=== PATIENT | female | born 1955 | race Caucasian/White ===

== ENCOUNTER 2020-10-27 10:05 | Day surgery (SDC) | payer OTHER ==
[~2020-10-27] VITALS: Ht 30.5 cm; Wt 0.5 kg
[~2020-10-27 10:05] MED LIST: AMLO-489 PO; DOCU100T15 PO; GABA300C10 PO; GLIP5TAB12 PO; HYDR-4072 PO; HYDR25TA5 PO; LEVO750T64 PO; LOSA-39 PO; METF-372 PO; ROSU10TA16 PO; SERT-160 PO
[2020-10-27] MEDS ORDERED: ceFAZolin 1GM/50ML 0 ML IV ONE (10:27)
[2020-10-27] MEDS ORDERED: GENTAMICIN SULF 80 MG/2 ML VIAL ONE (10:40)
[2020-10-27] MEDS ORDERED: IOHEXOL 300 MG/ML 100ML BOTTLE IJ ONE (12:54)
[2020-10-27] MEDS ORDERED: MEPERIDINE HCL (25 MG/ML) 1ML VIAL ONE (13:04)
[2020-10-27] MEDS ORDERED: fentaNYL CITRATE 100 MCG/2 ML VL ONE (13:04)
[2020-10-27] MEDS ORDERED: MIDAZOLAM HCL 1MG/1ML-2 ML VIAL ONE (13:05)
[2020-10-27] MEDS ORDERED: DexAMETHasone SOD PHOS 10MG/1ML VIAL INJ ONE (13:05)
[2020-10-27] MEDS ORDERED: PROPOFOL 10 MG/ML 20 ML IV ONE (13:05)
[2020-10-27] MEDS ORDERED: ONDANSETRON HCL 4 MG/2 ML VIAL IV PRN (14:30)
[2020-10-27] MEDS ORDERED: HYDROmorphone HCL 2 MG/ML VL IV PRN (14:30)
[2020-10-27] MEDS ORDERED: MIDAZOLAM HCL 1MG/1ML-2 ML VIAL IV PRN (14:30)
[2020-10-27] MEDS ORDERED: LABETALOL HCL 5 MG/ML 4ML SYRINGE IV PRN (14:30)
[2020-10-27] MEDS ORDERED: ePHEDrine SULFATE 50 MG/ML AMP IV PRN (14:30)
[2020-10-27] MEDS ORDERED: MORPHINE SULFATE 4 MG/ML SYR/VIAL IV PRN (14:30)
[2020-10-27 14:45] VITALS: BP 130/53
== END 2020-10-27 15:10 | disposition home or self-care (01) ==
LOC: SUR 10:05
PROVIDERS: ATTEND Urology
DX: N20.0 Calculus of kidney (principal); T83.192A Other mechanical complication of indwelling ureteral stent, initial encounter; I12.9 Hypertensive chronic kidney disease with stage 1 through stage 4 chronic kidney disease, or unspecified chronic kidney disease; E11.22 Type 2 diabetes mellitus with diabetic chronic kidney disease; N18.2 Chronic kidney disease, stage 2 (mild); E11.42 Type 2 diabetes mellitus with diabetic polyneuropathy; G89.29 Other chronic pain; M19.90 Unspecified osteoarthritis, unspecified site; F17.210 Nicotine dependence, cigarettes, uncomplicated; Z82.49 Family history of ischemic heart disease and other diseases of the circulatory system; Z96.0 Presence of urogenital implants; Z79.899 Other long term (current) drug therapy; Z98.890 Other specified postprocedural states; Z86.79 Personal history of other diseases of the circulatory system; Z88.8 Allergy status to other drugs, medicaments and biological substances; Z80.3 Family history of malignant neoplasm of breast; Z83.3 Family history of diabetes mellitus; Z82.61 Family history of arthritis; Z79.84 Long term (current) use of oral hypoglycemic drugs; Z90.49 Acquired absence of other specified parts of digestive tract; Z90.89 Acquired absence of other organs; Z90.711 Acquired absence of uterus with remaining cervical stump; Z20.822 Contact with and (suspected) exposure to COVID-19; Y83.8 Other surgical procedures as the cause of abnormal reaction of the patient, or of later complication, without mention of misadventure at the time of the procedure; Y92.89 Other specified places as the place of occurrence of the external cause; Z88.0 Allergy status to penicillin
CPT/HCPCS: 50590; 52310; 82962; 88300; J1100; J1580; J2175; J2250; J2704; J3010; J7030; U0003; J0690

== ENCOUNTER → 2021-10-22 | Day surgery (SDC) | payer OTHER ==
[~2021-10-22] VITALS: Ht 157.5 cm; Wt 77.1 kg
[~2021-10-22] MED LIST changes: +ACCU-CHEK COMFORT CURVE STRIP VI ONE; +DexAMETHasone SOD PHOS 10MG/1ML VIAL INJ ONE; +GENTAMICIN SULF 80 MG/2 ML VIAL ONE; +HYDROCORTISONE SOD SUCC 100 MG/2ML INJ VIAL ONE; +HYDROmorphone HCL 2 MG/ML VL/or syr IV PRN; +HYDROmorphone HCL 2 MG/ML VL/or syr ONE; +KETAMINE 50mg/ML 10ml Vial (500mg/10ml) IV ONE; +KETOROLAC TROMETH 30 MG/ML 1ML VIAL ONE; -LEVO750T64 PO; +LIDOCAINE 2% (LOCAL ANESTH.) PF 5ml SDV ONE; +MIDAZOLAM HCL 2MG/2ML 2ml VIAL (1mg/ml) ONE; +MULT-733 OR; +ONDANSETRON HCL 4 MG/2 ML VIAL IV PRN; +ONDANSETRON HCL 4 MG/2 ML VIAL ONE; +ROCURONIUM 10MG/ML 10ML VIAL IV ONE; +TIZA4TAB9 PO; +[UNRECOGNIZED DRUG - CODE] EX; +fentaNYL CITRATE 100 MCG/2 ML VL ONE
[2021-10-22 12:40] VITALS: BP 132/51
== END | disposition home or self-care (01) ==
LOC: SUR 08:23
PROVIDERS: ATTEND Urology
DX: N20.0 Calculus of kidney (principal); I12.9 Hypertensive chronic kidney disease with stage 1 through stage 4 chronic kidney disease, or unspecified chronic kidney disease; E11.22 Type 2 diabetes mellitus with diabetic chronic kidney disease; N18.2 Chronic kidney disease, stage 2 (mild); F41.9 Anxiety disorder, unspecified; E78.5 Hyperlipidemia, unspecified; E11.42 Type 2 diabetes mellitus with diabetic polyneuropathy; G89.29 Other chronic pain; F17.200 Nicotine dependence, unspecified, uncomplicated; Z88.0 Allergy status to penicillin; Z88.1 Allergy status to other antibiotic agents; Z88.8 Allergy status to other drugs, medicaments and biological substances; Z20.822 Contact with and (suspected) exposure to COVID-19
CPT/HCPCS: 52353; 74018; 82962; J1100; J1170; J1580; J1720; J1885; J2001; J2250; J2405; J3010; U0003; 76000

== ENCOUNTER 2022-03-01 06:12 | Day surgery (SDC) | payer OTHER ==
[~2022-03-01] VITALS: Ht 157.5 cm; Wt 77.1 kg
[~2022-03-01 06:12] MED LIST changes: -ACCU-CHEK COMFORT CURVE STRIP VI ONE; -DexAMETHasone SOD PHOS 10MG/1ML VIAL INJ ONE; -GENTAMICIN SULF 80 MG/2 ML VIAL ONE; -HYDR-4072 PO; -HYDROCORTISONE SOD SUCC 100 MG/2ML INJ VIAL ONE; -HYDROmorphone HCL 2 MG/ML VL/or syr IV PRN; -HYDROmorphone HCL 2 MG/ML VL/or syr ONE; -KETAMINE 50mg/ML 10ml Vial (500mg/10ml) IV ONE; -KETOROLAC TROMETH 30 MG/ML 1ML VIAL ONE; -LIDOCAINE 2% (LOCAL ANESTH.) PF 5ml SDV ONE; -MIDAZOLAM HCL 2MG/2ML 2ml VIAL (1mg/ml) ONE; +MULT-733 PO; -ONDANSETRON HCL 4 MG/2 ML VIAL IV PRN; -ONDANSETRON HCL 4 MG/2 ML VIAL ONE; +PERCOT PO; -ROCURONIUM 10MG/ML 10ML VIAL IV ONE; -[UNRECOGNIZED DRUG - CODE] EX; +[UNRECOGNIZED DRUG - CODE] PO; -fentaNYL CITRATE 100 MCG/2 ML VL ONE
[2022-03-01] MEDS ORDERED: ceFAZolin 1GM/50ML 100 ML IV ONE (07:18)
[2022-03-01] MEDS ORDERED: ONDANSETRON HCL 4 MG/2 ML VIAL IV PRN (09:00)
[2022-03-01] MEDS ORDERED: MIDAZOLAM HCL 2MG/2ML 2ml VIAL (1mg/ml) IV PRN (09:00)
[2022-03-01] MEDS ORDERED: HYDROmorphone HCL 2 MG/ML VL/or syr IV PRN (09:00)
[2022-03-01] MEDS ORDERED: ePHEDrine SULFATE 50 MG/ML AMP IV PRN (09:00)
[2022-03-01] MEDS ORDERED: ACCU-CHEK COMFORT CURVE STRIP VI ONE (09:00)
[2022-03-01] MEDS ORDERED: LABETALOL HCL 5 MG/ML 4ML SYRINGE IV PRN (09:00)
[2022-03-01] MEDS ORDERED: MORPHINE SULFATE 4 MG/ML SYR/VIAL IV PRN (09:00)
[2022-03-01 09:06] VITALS: BP 125/63
== END 2022-03-01 09:27 | disposition home or self-care (01) ==
LOC: SUR 06:12
PROVIDERS: ATTEND Urology
DX: N20.0 Calculus of kidney (principal); I10 Essential (primary) hypertension; F32.A Depression, unspecified; E11.42 Type 2 diabetes mellitus with diabetic polyneuropathy; Z88.0 Allergy status to penicillin; Z87.891 Personal history of nicotine dependence; Z20.822 Contact with and (suspected) exposure to COVID-19
CPT/HCPCS: 50590; 82962; C1769; J0690; J1100; J2175; J2250; J2704; J3010; J7030; U0003

== ENCOUNTER 2023-10-09 16:06 | Inpatient (IN) | payer OTHER, MEDICARE ==
[~2023-10-09] VITALS: Ht 167.6 cm; Wt 57.7 kg
[~2023-10-09 16:06] MED LIST changes: -AMLO-489 PO; +AMLO1TAB22 PO; +GABA-1250 PO; -GABA300C10 PO; -GLIP5TAB12 PO; +GLIP5TAB21 PO; -LOSA-39 PO; +LOSA-535 PO
[2023-10-09] MEDS: LORazepam 2MG/ML-1ML VIAL IV ONE ×2 (16:30→19:30)
[2023-10-09] MEDS: HALOPERIDOL LACTATE 5 MG/ML INJ VIAL IV ONE ×2 (19:30→20:29)
[2023-10-09] MEDS: diphenhdrAMINE HCL 50 MG/1 ML VL IV ONE (20:28)
[2023-10-09 20:55] VITALS: PULSE 76; RESP 18; O2SAT 97
[2023-10-10] MEDS: HYDROcodone-ACET 5/325MG TAB PO ONE ×2 (03:35→09:17)
[2023-10-10 04:14] LABS: Basophils # (auto) 0.1 10 ^3/uL (0-0.2); Basophils % (auto) 0.8 % (0.0-2.0); Eosinophils # (auto) 0.1 10 ^3/uL (0-0.8); Eosinophils % (auto) 1.4 % (0.0-7.0); Hematocrit 36.1 % (36.0-46.0); Hemoglobin 12.7 g/dL (12.2-16.2); Lymphocytes # (auto) 1.6 10 ^3/uL (0.4-5.4); Lymphocytes % (auto) 19.5 % (10.0-50.0); Mean Corpuscular Hemoglobin 30.1 pg (28.0-32.0); Mean Corpuscular Hgb Conc. 35.3 g/dL (32.0-36.0); Mean Corpuscular Volume 85.2 fL (80.0-100.0); Monocytes # (auto) 0.6 10 ^3/uL (0-1.3); Monocytes % (auto) 7.1 % (0.0-12.0); Neutrophils # (auto) 5.8 10 ^3/uL (1.6-8.6); Neutrophils % (auto) 71.2 % (37.0-80.0); Nucleated Red Blood Cells % 0.1 %; Red Blood Cells 4.24 10^6/uL (4.0-5.20); Red Cell Distribution Width 15.4 % (11.8-14.3); White Blood Cell 8.2 10^3/uL (4.4-10.8)
[2023-10-10 04:32] LABS: Chloride 102 mmol/L (98-107); Potassium 3.2 mmol/L (3.5-5.1); Sodium 134 mmol/L (136-145)
[2023-10-10 04:33] LABS: Anion Gap 10 (5-15); Calcium 9.7 mg/dL (8.7-10.4); Carbon Dioxide 22 mmol/L (20-30)
[2023-10-10 04:38] LABS: BUN/Creatinine Ratio 18.1 (10.0-20.0); Blood Urea Nitrogen 15 mg/dL (9-23); Glucose 114 mg/dL (74-106)
[2023-10-10 04:42] LABS: Salicylate < 3.0 mg/dL (2.8-20.0)
[2023-10-10 04:44] LABS: Urine Bacteria None Seen /hpf (None Seen)
[2023-10-10 05:03] LABS: Amphetamine Screen, Urine Neg (NEGATIVE); Barbiturate Scree,Urine Neg (NEGATIVE); Benzodiazephine Screen, Urine Neg (NEGATIVE); Cannabinoid Screen, Urine Neg (NEGATIVE); Cocaine Screen, Urine Neg (NEGATIVE); Opiate Scree,Urine Pos (NEGATIVE); Phencyclidine Screen, Urine Neg (NEGATIVE)
[2023-10-10 05:09] LABS: Urine Blood 3+ /uL (Negative); Urine Budding Yeast FEW /hpf (None Seen); Urine Clarity Turbid (Clear); Urine Color Brown (Yellow); Urine Protein, UAD 2+ (Negative); Urine Specific Gravity 1.014 (1.001-1.035); Urine Urobilinogen Normal (Negative); Urine WBC 250 /hpf (0 - 5); Urine WBC Clumps PRESENT /hpf (None Seen); Urine pH 7.5 (5.0-9.0)
[2023-10-10 06:08] LABS: Blood Alcohol < 3.0 mg/dL (<10)
[2023-10-10] MEDS: cefTRIAXone 1GM/50ML D5W 50 ML IV ONE (06:56)
[2023-10-10] MEDS: POTASSIUM EFFERVESENT TAB 25 MEQ PO ONE (08:22)
[2023-10-10] MEDS ORDERED: BACDST PO (08:29)
[2023-10-10] MEDS ORDERED: HYDR-4902 PO (08:29)
[2023-10-10] MEDS: DULoxetine HCL 30 MG CAP PO SCH (11:02)
[2023-10-10] MEDS ORDERED: NITROGLYCERIN 0.4 MG SL TAB SL PRN ×2 (17:45)
[2023-10-10] MEDS ORDERED: MORPHINE SULFATE INJ 2 MG/ml SYRG IV PRN ×2 (17:45)
[2023-10-10] MEDS ORDERED: DOCUSATE SOD 100 MG CAP PO PRN (17:45)
[2023-10-10] MEDS ORDERED: ONDANSETRON HCL 4 MG/2 ML VIAL IV PRN (17:45)
[2023-10-10] MEDS ORDERED: MAALOX PLUS or MAALOX 30 ML PO PRN (17:45)
[2023-10-10] MEDS ORDERED: ACETAMINOPHEN 325 MG TAB PO PRN (17:45)
[2023-10-10] MEDS: HYDROcodone-ACET 5/325MG TAB PO PRN (18:52)
[2023-10-10 21:30] VITALS: PULSE 71; RESP 17; O2SAT 98
[2023-10-10] MEDS: CEPHALEXIN 250 MG CAP PO SCH (22:00)
[2023-10-10] MEDS: SODIUM CHLOR 0.9% PF (SALINE LOCK) 10ML VIAL/SYR IV SCH (22:00)
[2023-10-11 03:51] VITALS: PULSE 70; RESP 17; O2SAT 99
[2023-10-11 05:00] VITALS: BP 119/70; PULSE 70; RESP 19; TEMP 97.8; O2SAT 99
[2023-10-11 06:10] LABS: Basophils # (auto) 0.1 10 ^3/uL (0-0.2); Basophils % (auto) 0.8 % (0.0-2.0); Eosinophils # (auto) 0.1 10 ^3/uL (0-0.8); Eosinophils % (auto) 1.9 % (0.0-7.0); Hematocrit 36.3 % (36.0-46.0); Hemoglobin 12.7 g/dL (12.2-16.2); Lymphocytes # (auto) 1.7 10 ^3/uL (0.4-5.4); Mean Corpuscular Hemoglobin 30.7 pg (28.0-32.0); Mean Corpuscular Volume 87.8 fL (80.0-100.0); Monocytes # (auto) 0.6 10 ^3/uL (0-1.3); Monocytes % (auto) 8.2 % (0.0-12.0); Neutrophils # (auto) 4.3 10 ^3/uL (1.6-8.6); Neutrophils % (auto) 64.1 % (37.0-80.0); Nucleated Red Blood Cells % 0.1 %; Red Blood Cells 4.14 10^6/uL (4.0-5.20); Red Cell Distribution Width 15.3 % (11.8-14.3); White Blood Cell 6.8 10^3/uL (4.4-10.8)
[2023-10-11 06:14] LABS: Anion Gap 8 (5-15); Carbon Dioxide 23 mmol/L (20-30); Chloride 106 mmol/L (98-107); Potassium 3.7 mmol/L (3.5-5.1); Sodium 137 mmol/L (136-145)
[2023-10-11 06:15] LABS: Calcium 9.5 mg/dL (8.5-10.1)
[2023-10-11 06:20] LABS: BUN/Creatinine Ratio 15.5 (10.0-20.0); Blood Urea Nitrogen 11 mg/dL (9-23); Glucose 111 mg/dL (74-106)
[2023-10-11 08:00] VITALS: BP 100/54; PULSE 71; RESP 18; TEMP 98; O2SAT 99
[2023-10-11 09:00] VITALS: BP 100/54; PULSE 71; RESP 18; TEMP 98; O2SAT 99
[2023-10-11] MEDS: POTASSIUM CHL 20 Meq TABLET PO SCH (09:45)
[2023-10-11] MEDS: ENOXAPARIN SOD 30 MG/0.3 ML SYRINGE SC SCH (09:46)
[2023-10-11] MEDS ORDERED: HYDROcodone-ACET 10/325MG TAB PO PRN (14:45)
[2023-10-11] MEDS ORDERED: DEXTROSE (50%) 50ML SYRG IV PRN (15:15)
[2023-10-11] MEDS: HYDROcodone-ACET 10/325MG TAB PO PRN (15:30)
[2023-10-11] MEDS: InsuLIN REG 1unit/0.01ml Soln (100units/ml) SC SCH (17:00)
[2023-10-11] MEDS: ACCU-CHEK COMFORT CURVE STRIP VI SCH (17:26)
[2023-10-11 20:00] VITALS: PULSE 64; RESP 15; O2SAT 100
[2023-10-11 21:00] VITALS: BP 133/67; PULSE 64; RESP 15; TEMP 98.6; O2SAT 100
[2023-10-11] MEDS: GABAPENTIN 300 MG CAP PO SCH (22:43)
[2023-10-11] MEDS: QUEtiapine FUMARATE 25 MG TAB PO SCH (22:44)
[2023-10-11] MEDS: MIRTAZAPINE 30 MG TAB PO SCH (22:44)
[2023-10-12] MEDS: glipiZIDE 5 MG TAB PO SCH (06:18)
[2023-10-12 08:30] VITALS: BP 155/79; PULSE 66; RESP 15; TEMP 98; O2SAT 98
[2023-10-12 08:34] LABS: Basophils # (auto) 0.1 10 ^3/uL (0-0.2); Basophils % (auto) 1.1 % (0.0-2.0); Eosinophils # (auto) 0.2 10 ^3/uL (0-0.8); Hematocrit 41.4 % (36.0-46.0); Lymphocytes # (auto) 2.2 10 ^3/uL (0.4-5.4); Lymphocytes % (auto) 31.6 % (10.0-50.0); Mean Corpuscular Hemoglobin 30.1 pg (28.0-32.0); Mean Corpuscular Hgb Conc. 33.9 g/dL (32.0-36.0); Mean Corpuscular Volume 88.9 fL (80.0-100.0); Monocytes # (auto) 0.5 10 ^3/uL (0-1.3); Neutrophils % (auto) 57.3 % (37.0-80.0); Nucleated Red Blood Cells % 0.4 %; Red Blood Cells 4.66 10^6/uL (4.0-5.20); Red Cell Distribution Width 15.7 % (11.8-14.3)
[2023-10-12 08:45] LABS: Alanine Aminotransferase 21 U/L (7-40); Albumin 4.3 g/dL (3.2-4.8); Alkaline Phosphatase 210 U/L (46-116); Anion Gap 7 (5-15); Aspartate Aminotransferase 28 U/L (13-40); BUN/Creatinine Ratio 12.5 (10.0-20.0); Blood Urea Nitrogen 11 mg/dL (9-23); Carbon Dioxide 25 mmol/L (20-30); Chloride 107 mmol/L (98-107); Glucose 96 mg/dL (74-106); Potassium 3.8 mmol/L (3.5-5.1); Sodium 139 mmol/L (136-145)
[2023-10-12 08:46] LABS: Bilirubin, Total 0.6 mg/dL (0.2-1.0)
[2023-10-12] MEDS: LOSARTAN POTASSIUM 50 MG TAB PO SCH (10:03)
[2023-10-12 12:30] VITALS: BP 115/69; PULSE 68; RESP 16; TEMP 98.1; O2SAT 98
[2023-10-12] MEDS: CARBIDOPA W LEVODOPA 25/100mg TABLET PO ONE (13:02)
[2023-10-12] MEDS: HYDROcodone-ACET 10/325MG TAB PO SCH (13:03)
[2023-10-12 16:35] VITALS: BP 134/71; PULSE 69; RESP 16; TEMP 98.4; O2SAT 98
[2023-10-12 20:00] VITALS: PULSE 59; RESP 17; O2SAT 93
[2023-10-12 21:00] VITALS: BP 133/69; PULSE 59; RESP 17; TEMP 98; O2SAT 93
[2023-10-13 01:00] VITALS: BP 128/62; PULSE 54; RESP 18; TEMP 97.8; O2SAT 95
[2023-10-13 05:00] VITALS: BP 91/54; PULSE 56; RESP 18; TEMP 97.9; O2SAT 92
[2023-10-13 06:17] LABS: Chloride 109 mmol/L (98-107); Sodium 138 mmol/L (136-145)
[2023-10-13 06:18] LABS: Anion Gap 5 (5-15); Calcium 9.4 mg/dL (8.5-10.1); Carbon Dioxide 24 mmol/L (20-30)
[2023-10-13 06:23] LABS: BUN/Creatinine Ratio 16.7 (10.0-20.0); Blood Urea Nitrogen 12 mg/dL (9-23); Glucose 81 mg/dL (74-106)
[2023-10-13] MEDS: CARBIDOPA W LEVODOPA 25/100mg TABLET PO SCH (10:31)
[2023-10-13] MEDS: FLUCONAZOLE 100 MG TAB PO SCH (14:42)
[2023-10-13] MEDS: GABAPENTIN 300 MG CAP PO SCH (14:42)
[2023-10-13 20:00] VITALS: PULSE 71; RESP 16; O2SAT 99
[2023-10-13 21:00] VITALS: BP 115/67; PULSE 71; RESP 16; TEMP 98.1; O2SAT 99
[2023-10-13] MEDS: diphenhdrAMINE HCL 50 MG/1 ML VL IV ONE (22:54)
[2023-10-14] VITALS (9 sets, daily range): BP systolic 102–155; BP diastolic 51–85; PULSE 59–74; RESP 16–94; TEMP 36.7; O2SAT 91–99
[2023-10-14] MEDS: LORazepam 0.5 MG TAB PO PRN (00:14)
[2023-10-15] VITALS (7 sets, daily range): BP systolic 105–146; BP diastolic 46–85; PULSE 57–69; RESP 17–20; TEMP 36.8; O2SAT 96–100
[2023-10-16 01:00] VITALS: BP 102/62; PULSE 58; RESP 20; TEMP 97.9; O2SAT 93
[2023-10-16 05:00] VITALS: BP 156/74; PULSE 98; RESP 20; TEMP 97.8; O2SAT 98
[2023-10-16 08:26] VITALS: BP 125/77; PULSE 61; RESP 19; TEMP 98.4; O2SAT 98
[2023-10-16 12:23] VITALS: BP 118/69; PULSE 58; RESP 18; TEMP 98.1; O2SAT 97
[2023-10-16 17:00] VITALS: BP 113/67; PULSE 55; RESP 18; TEMP 97.9; O2SAT 98
[2023-10-16 20:40] VITALS: BP 122/62; PULSE 58; RESP 16; TEMP 98.1; O2SAT 100
[2023-10-17] VITALS (7 sets, daily range): BP systolic 104–124; BP diastolic 53–67; PULSE 56–69; RESP 12–17; TEMP 97.8–98.6; O2SAT 94–99
[2023-10-17 16:28] LABS: Alanine Aminotransferase 13 U/L (7-40); Albumin 3.8 g/dL (3.2-4.8); Alkaline Phosphatase 149 U/L (46-116); Anion Gap 5 (5-15); Aspartate Aminotransferase 22 U/L (13-40); BUN/Creatinine Ratio 19.8 (10.0-20.0); Basophils # (auto) 0.1 10 ^3/uL (0-0.2); Basophils % (auto) 1.1 % (0.0-2.0); Blood Urea Nitrogen 16 mg/dL (9-23); Calcium 9.5 mg/dL (8.5-10.1); Carbon Dioxide 29 mmol/L (20-30); Chloride 105 mmol/L (98-107); Eosinophils # (auto) 0.2 10 ^3/uL (0-0.8); Eosinophils % (auto) 2.8 % (0.0-7.0); Glucose 130 mg/dL (74-106); Hemoglobin 11.4 g/dL (12.2-16.2); Lymphocytes # (auto) 2.1 10 ^3/uL (0.4-5.4); Lymphocytes % (auto) 31.9 % (10.0-50.0); Mean Corpuscular Hemoglobin 30.9 pg (28.0-32.0); Mean Corpuscular Hgb Conc. 34.5 g/dL (32.0-36.0); Mean Corpuscular Volume 89.6 fL (80.0-100.0); Monocytes # (auto) 0.4 10 ^3/uL (0-1.3); Monocytes % (auto) 6.9 % (0.0-12.0); Neutrophils # (auto) 3.7 10 ^3/uL (1.6-8.6); Neutrophils % (auto) 57.3 % (37.0-80.0); Potassium 3.9 mmol/L (3.5-5.1); Red Blood Cells 3.69 10^6/uL (4.0-5.20); Sodium 139 mmol/L (136-145); White Blood Cell 6.5 10^3/uL (4.4-10.8)
[2023-10-17 16:29] LABS: Bilirubin, Total 0.4 mg/dL (0.2-1.0); Total Protein 5.9 g/dL (5.7-8.2)
[2023-10-18 01:00] VITALS: BP 118/51; PULSE 56; RESP 18; TEMP 98.2; O2SAT 98
[2023-10-18 05:00] VITALS: BP 116/53; PULSE 57; RESP 19; TEMP 97.9; O2SAT 97
[2023-10-18 09:00] VITALS: BP 109/64; PULSE 62; RESP 19; TEMP 98.5; O2SAT 97
[2023-10-18 13:00] VITALS: BP 113/60; PULSE 68; RESP 19; O2SAT 98
[2023-10-18] MEDS ORDERED: QUET1TAB11 PO (14:57)
[2023-10-18] MEDS ORDERED: DULO-141 PO (14:57)
[2023-10-18] MEDS ORDERED: CAR25T PO (14:57)
[2023-10-18] MEDS ORDERED: MIR30T PO (14:57)
[2023-10-18 17:00] VITALS: BP 125/66; PULSE 67; RESP 19; TEMP 98.3; O2SAT 97
[2023-10-18 21:00] VITALS: BP 128/78; PULSE 64; RESP 16; TEMP 99.1; O2SAT 98
[2023-10-19 01:00] VITALS: BP 120/58; PULSE 68; RESP 14; TEMP 99; O2SAT 96
[2023-10-19 05:00] VITALS: BP 126/65; PULSE 74; RESP 19; TEMP 98.9; O2SAT 98
[2023-10-19 09:00] VITALS: BP 102/45; PULSE 55; RESP 20; TEMP 98.2; O2SAT 94
[2023-10-19] MEDS: ACETAMINOPHEN 325 MG TAB PO PRN (11:05)
[2023-10-19 13:00] VITALS: BP 127/76; PULSE 70; RESP 20; TEMP 98.8; O2SAT 99
[2023-10-19 20:00] VITALS: BP 147/84; PULSE 62; RESP 18; TEMP 98; O2SAT 97
[2023-10-19 21:00] VITALS: BP 147/84; PULSE 62; RESP 18; TEMP 98; O2SAT 97
[2023-10-20 01:00] VITALS: BP 135/68; PULSE 60; RESP 18; O2SAT 98
[2023-10-20 05:00] VITALS: BP 141/73; PULSE 59; RESP 16; TEMP 98.1; O2SAT 99
[2023-10-20 09:00] VITALS: BP 152/72; PULSE 62; RESP 18; TEMP 98; O2SAT 98
[2023-10-20 13:00] VITALS: BP 143/80; PULSE 70; RESP 18; TEMP 98.1; O2SAT 99
[2023-10-20 16:56] VITALS: BP 131/72; PULSE 64; RESP 18; TEMP 98.2; O2SAT 99
[2023-10-21] VITALS (8 sets, daily range): BP systolic 118–155; BP diastolic 43–76; PULSE 57–65; RESP 17–19; TEMP 97.6–98.7; O2SAT 97–99
[2023-10-21 07:03] LABS: Basophils # (auto) 0.1 10 ^3/uL (0-0.2); Basophils % (auto) 0.9 % (0.0-2.0); Eosinophils # (auto) 0.2 10 ^3/uL (0-0.8); Eosinophils % (auto) 3.5 % (0.0-7.0); Hematocrit 33.4 % (36.0-46.0); Hemoglobin 11.6 g/dL (12.2-16.2); Lymphocytes # (auto) 2.4 10 ^3/uL (0.4-5.4); Lymphocytes % (auto) 37.4 % (10.0-50.0); Mean Corpuscular Hemoglobin 31.4 pg (28.0-32.0); Mean Corpuscular Hgb Conc. 34.7 g/dL (32.0-36.0); Mean Corpuscular Volume 90.5 fL (80.0-100.0); Monocytes # (auto) 0.8 10 ^3/uL (0-1.3); Monocytes % (auto) 11.6 % (0.0-12.0); Neutrophils % (auto) 46.6 % (37.0-80.0); Red Blood Cells 3.69 10^6/uL (4.0-5.20); Red Cell Distribution Width 15.5 % (11.8-14.3); White Blood Cell 6.5 10^3/uL (4.4-10.8)
[2023-10-21 07:04] LABS: Chloride 110 mmol/L (98-107); Potassium 4.7 mmol/L (3.5-5.1); Sodium 144 mmol/L (136-145)
[2023-10-21 07:05] LABS: Anion Gap 6 (5-15); Carbon Dioxide 28 mmol/L (20-30)
[2023-10-21 07:06] LABS: Calcium 9.7 mg/dL (8.5-10.1)
[2023-10-21 07:10] LABS: BUN/Creatinine Ratio 21.4 (10.0-20.0); Blood Urea Nitrogen 18 mg/dL (9-23); Glucose 93 mg/dL (74-106)
== END 2023-10-21 21:10 | DRG 57 ==
LOC: ER 16:06 → EDBD 16:06 → OVERFLOW 10-10 17:48 → WEST WING 10-11 03:03 → EAST 10-20 21:26
PROVIDERS: ADMIT Family Medicine; ATTEND Family Medicine
DX: G20.A2 Parkinson's disease without dyskinesia, with fluctuations (principal); R45.851 Suicidal ideations; N39.0 Urinary tract infection, site not specified; F02.80 Dementia in other diseases classified elsewhere, unspecified severity, without behavioral disturbance, psychotic disturbance, mood disturbance, and anxiety; F32.A Depression, unspecified; F17.210 Nicotine dependence, cigarettes, uncomplicated; G89.4 Chronic pain syndrome; E87.6 Hypokalemia; E11.40 Type 2 diabetes mellitus with diabetic neuropathy, unspecified; E78.5 Hyperlipidemia, unspecified; K80.20 Calculus of gallbladder without cholecystitis without obstruction; I10 Essential (primary) hypertension; Z91.51 Personal history of suicidal behavior; Z98.2 Presence of cerebrospinal fluid drainage device; Z87.442 Personal history of urinary calculi; Z88.1 Allergy status to other antibiotic agents; Z79.899 Other long term (current) drug therapy; Z79.891 Long term (current) use of opiate analgesic; Z90.710 Acquired absence of both cervix and uterus; Z88.0 Allergy status to penicillin
CPT/HCPCS: 36415; 70450; 71045; 74176; 80048; 80053; 80307; 80320; 80329; 81001; 82962; 85025; 87081; 87086; 87088; 97110; 97116; 97163; 97530; G0378; J1815